=== PATIENT | female | born 1945 | race Caucasian/White ===

== ENCOUNTER 2021-12-18 10:10 | Outpatient (CLI) | payer MEDICARE | END 2021-12-18 10:11 | disposition home or self-care (01) | LOC: CSHMAMMO 10:10 | PROVIDERS: ATTEND Internal Medicine | DX: Z12.31 Encounter for screening mammogram for malignant neoplasm of breast (principal); Z80.3 Family history of malignant neoplasm of breast | CPT/HCPCS: 77063; 77067 ==

== ENCOUNTER 2024-07-11 10:18 | Outpatient (CLI) | payer MEDICARE | END 2024-07-11 10:19 | disposition home or self-care (01) | LOC: CSHMAMMO 10:18 | PROVIDERS: ATTEND Family Medicine | DX: Z12.31 Encounter for screening mammogram for malignant neoplasm of breast (principal); Z86.000 Personal history of in-situ neoplasm of breast | CPT/HCPCS: 77063; 77067 ==